=== PATIENT | male | born 1955 | race Caucasian/White ===

== ENCOUNTER 2021-08-13 08:14 | Emergency (ER) | payer BC, SELFPAY ==
--- NOTE | ~2021-08-13 | CT_ITS ---
EXAMINATION: CT abdomen pelvis w con EXAM DATE: 08/13/2021 10:48 INDICATION: Abdominal pain, probable umbilical hernia, nausea. TECHNIQUE: Spiral CT of the abdomen and pelvis was performed following intravenous injection of 100 m L Omnipaque 350. Axial, coronal and sagittal images of the abdomen and pelvis were reviewed. The do se-length product (DLP) for this examination was 498.53 mGy-cm. The exposure was tailored according to patient size (auto mA exposure control), and iterative reconstruction (ASIR) was used as additiona l dose reduction technique. There is no prior study for comparison. FINDINGS: Small to moderate-sized umbilical fat-containing hernia with mild fat stranding inside, mil d inflammation. The liver, spleen, adrenal glands and pancreas are unremarkable. Gallbladder is unre markable. No biliary obstruction. Portal and splenic veins are patent. Kidneys enhance symmetrical ly. There is no hydronephrosis. The prostate is unremarkable. The bladder is unremarkable. There is no retroperitoneal or pelvic lymphadenopathy. There is moderate scattered arteriosclerotic dise ase. There is short segment small bowel intussusception, only about 2.5 cm in length. This has been indica luly on axial image 71, coronal image 51. Short segment small bowel intussusceptions can be transient and incidentally found, however there is a mildly dilated jejunal loop proximal to this with air-flui d levels, measuring up to about 3 cm in diameter. The appendix is normal. There is moderate amount of colonic stool. No free intraperitoneal gas. The heart is normal in size. There are no pericardial or pleural effusions. The lung bases are unre markable. There are no osteoblastic or osteolytic lesions identified. IMPRESSION: 1. Small to moderate-sized umbilical fat-containing hernia, mild inflammation within. 2. Short segment small bowel intussusception, could be transient incidental finding, but mildly there is dilated loop of jejunum proximal to this. 3. Moderate amount of colonic stool. Reviewed, dictated and finalized at location B. SAW OPERATOR IMPRESSION: 1. Small to moderate-sized umbilical fat-containing hernia, mild inflammation w ithin. 2. Short segment small bowel intussusception, could be transient incidental fin ding, but mildly there is dilated loop of jejunum proximal to this. 3. Moderate amount of colonic stool.
[2021-08-13 08:40] VITALS: BP 116/76; PULSE 52; RESP 18; O2SAT 100
--- NOTE | 2021-08-13 08:49 | ED.GENADULT ---
HPI - General Adult General Chief complaint: Abdominal Pain Stated complaint: Abd Pain Time Seen by Provider: 08/13/21 08:37 History of Present Illness HPI narrative: Patient is a 65-year-old gentleman who presents the emergency department with chief complaint of abdominal pain. The patient reports that he was exercising at the gym this morning and reports that while doing some crunches he felt a tearing sensation around the umbilicus and noticed a small lump in his abdominal wall. Patient states it was worse when he was standing up the patient states as he laid flat it did not hurt nearly as much and reported the lump was a little bit smaller. The patient denies vomiting denies diarrhea denies fever denies prior history of hernias. Related Data Home Medications Medication Instructions Recorded Confirmed No Home Medications 02/26/20 02/26/20 Allergies Allergy/AdvReac Type Severity Reaction Status Date / Time No Known Allergies Allergy Verified 08/13/21 08:46 Review of Systems Review of Systems: A 10 system review of systems was completed on the patient and is negative except for what is stated in the HPI. Nursing and ancillary documentation was reviewed. [facility] Surgical History Surgical History H/O right knee surgery Family History Family History Grandparent Family history of Alzheimer's disease Social History Social History Alcohol intake: current Exam Narrative: GENERAL: Well-appearing, well-nourished, and in no acute distress. HEAD: Normocephalic, atraumatic. EYES: PERRLA and EOMI. ENT: Nares clear, no rhinorrhea or epistaxis. Mucous membranes moist. NECK: Supple. CHEST: Clear to auscultation. No respiratory distress. HEART: Regular rate and rhythm. No murmur heard. Normal peripheral pulses. ABDOMEN: Soft, nontender, nondistended, normal active bowel sounds. There is a small mass in the umbilicus area with gentle pressure it was able to be reduced the patient's pain is improved now EXTREMITIES: Normal range of motion. No edema. SKIN: Warm, dry, no rash. NEURO: No focal deficits. Alert and oriented x3. PSYCH: Normal mood and affect. Course Vital Signs Vital signs: Vital Signs Pulse Rate 52 L 08/13/21 08:40 Respiratory Rate 18 08/13/21 08:40 Blood Pressure 116/76 08/13/21 08:40 Pulse Oximetry 100 08/13/21 08:40 Pulse Rate 52 L 08/13/21 11:30 Respiratory Rate 16 08/13/21 11:30 Blood Pressure 140/92 H 08/13/21 11:30 Pulse Oximetry 98 08/13/21 11:30 Medical Decision Making Vital Signs Vital Signs: Vital Signs Pulse Rate 52 L 08/13/21 08:40 Respiratory Rate 18 08/13/21 08:40 Blood Pressure 116/76 08/13/21 08:40 Pulse Oximetry 100 08/13/21 08:40 Pulse Rate 52 L 08/13/21 11:30 Respiratory Rate 16 08/13/21 11:30 Blood Pressure 140/92 H 08/13/21 11:30 Pulse Oximetry 98 08/13/21 11:30 Lab Data Result diagrams: 08/13/21 09:09 08/13/21 09:09 Labs: Lab Results 08/13/21 08/13/21 08/13/21 Range/Units 09:09 09:09 09:09 WBC 5.5 (4.5-10.0) K/mm3 RBC 4.06 L (4.6-6.20) M/mm3 Hgb 13.5 L (14.0-18.0) g/dL Hct 38.8 L (42.0-52.0) % MCV 95.6 (80-100) fl MCH 33.3 (26-34) pg MCHC 34.8 (32-36) g/dl RDW 13.3 (11.5-14.5) % Plt Count 208 (150-375) k/mm3 MPV 9.4 (7.4-10.4) fl Immature Gran % (Auto) 0.2 (0-0.5) % Neut % (Auto) 75.8 H (45.5-73.1) % Lymph % (Auto) 15.0 L (18.3-44.2) % [place] % (Auto) 6.5 (2.6-8.5) % Eos % (Auto) 2.0 (0-4.4) % Baso % (Auto) 0.5 (0.2-1.2) % Lymph # (Auto) 0.83 L (0.9-3.2) K/mm3 [place] # (Auto) 0.4 (0.1-0.6) K/mm3 Eos # (Auto) 0.1 (0-0.3) K/mm3 Baso # (Auto) 0.0 (0.0-0.1) K/mm3 Abs Immat Gran (auto) 0.0
[2021-08-13 09:02] VITALS: BP 115/85; PULSE 49; RESP 18; O2SAT 97
[2021-08-13 09:17] LABS: Basophils Percent Auto 0.5 % (0.2-1.2); Eosinophils Absolute Auto 0.1 K/mm3 (0-0.3); Hematocrit 38.8 % (42.0-52.0); Hemoglobin 13.5 g/dL (14.0-18.0); Immature Granulocyte Absolute 0.01 K/mm3 (0.00-0.031); Immature Granulocyte Percent A 0.2 % (0-0.5); Lymphocytes Absolute Auto 0.83 K/mm3 (0.9-3.2); Mean Corpuscular HGB Conc 34.8 g/dl (32-36); Mean Corpuscular Hemoglobin 33.3 pg (26-34); Mean Corpuscular Volume 95.6 fl (80-100); Mean Platelet Volume 9.4 fl (7.4-10.4); Monocytes Absolute Auto 0.4 K/mm3 (0.1-0.6); Monocytes Percent Auto 6.5 % (2.6-8.5); Neutrophils Absolute Auto 4.2 K/mm3 (1.3-6.7); Neutrophils Percent Auto 75.8 % (45.5-73.1); Platelet Count Result 208 k/mm3 (150-375); Red Blood Count 4.06 M/mm3 (4.6-6.20); Red Cell Distribution Width 13.3 % (11.5-14.5); White Blood Count 5.5 K/mm3 (4.5-10.0)
[2021-08-13 09:25] LABS: Add Urine Microscopic? NO; Appearance Urine Clear (Clear); Bilirubin Urine Negative (Negative); Blood Urine Negative (Negative); Color Urine Yellow (Yellow); Glucose Urine UA Negative (Negative); Ketones Urine Negative (Negative); Leukocyte Esterase Ur Negative LEU/UL (Negative); Nitrate Urine Negative (Negative); Protein Urine Negative (Negative); Specific Grav Ur 1.025 (1.001-1.035); Urobilinogen Urine Negative mg/dL (<2.0)
[2021-08-13 09:31] LABS: Lactic Acid Reflex 0.9 mmol/L (0.7-2.1)
[2021-08-13 09:32] LABS: Alanine Aminotransferase 27 U/L (4-50); Albumin Level 4.1 g/dL (3.5-5.1); Alkaline Phosphatase 89 U/L (38-126); Anion Gap 8 mmol/L (8-16); Aspartate Amino Transferase 35 U/L (17-59); Bilirubin,Total 0.7 mg/dL (0.2-1.3); Blood Urea Nitrogen 22 mg/dL (9-20); Carbon Dioxide 25 mmol/L (22-30); Chloride 105 mmol/L (98-107); Estimated CRCL calculation 70 ml/min; Estimated Glomerular Filt Rate > 60; Glucose 100 mg/dL (65-110); Lipase 90 U/L (23-300); Sodium 138 mmol/L (137-145)
[2021-08-13 10:01] VITALS: BP 120/83; PULSE 50; RESP 19; O2SAT 95
[2021-08-13 11:30] VITALS: BP 140/92; PULSE 52; RESP 16; O2SAT 98
[2021-08-13 12:45] VITALS: BP 125/86; PULSE 64; RESP 18; O2SAT 97
== END 2021-08-13 12:45 | disposition home or self-care (01) ==
PROVIDERS: Emergency Provider Emergency Medicine
DX: K42.9 Umbilical hernia without obstruction or gangrene (principal)
CPT/HCPCS: 36415; 74177; 80053; 81003; 83605; 83690; 85025; 99284; Q9967

== ENCOUNTER 2021-08-21 01:25 | Day surgery (SDC) | payer BC, SELFPAY ==
[2021-08-19 10:35] VITALS: BMI 25.8
--- NOTE | 2021-08-19 10:44 | PC.NURSE ---
Report to the Outpatient Waiting Room, entrance under the green pavilion located off [facility], at time 1130 on date 08/21/21. OR Time: 1330. - You and your visitor will be asked a series of questions to screen for COVID 19 for your protection. - A mask is required within the hospital. - Only one visitor is allowed at this time. Patient visitors will be guided where to wait when not with patient. Preoperative COVID Testing Requirements: No COVID Test needed if: (proof is required; if not received patient will have Rapid Test prior to entry) - Patient has received COVID Vaccine at least 14 days prior to procedure date or - Patient has positive COVID test result within last 90 days of surgery date. COVID Test needed if above criteria is not met If not COVID vaccinated a COVID test must be conducted within 72 hours of surgery and patient is asked to isolate self from time of testing until procedure. You will go to the [facility] for your COVID testing. The [facility] site is located at the corner of [address] [facility]. You will only be called if COVID results are positive and your surgeon may reschedule your elective surgery date. Patients may have clear liquids (water, carbonated beverages, clear teas, apple juice) until 3 hours prior to surgery with a maximum of 20 ounces. - No food from midnight until time of surgery - Infants may have breast milk until 4 hours before surgery, infant formula 6 hours prior to surgery. - Children will be allowed to drink immediately following surgery. If applicable, please bring a bottle or sippy cup to assist with drinking. Juice, water, soda, and popsicles are readily available. For infants on formula, please bring formula the day of surgery. Pacifiers are allowed. Take the following medications with a SIP of water the morning of surgery: NONE Medications to discontinue per physician: N/A Date to take last dose: N/A Please no make-up, nail nepalese, hairspray, perfume, deodorant, or body powder the day of surgery. No jewelry (including any body piercings) or valuables the day of surgery, leave them at home. Please take a shower or bath the night before, or the morning of, surgery with an antibacterial soap. Wear comfortable, loose fitting clothing. HIBICLENS SHOWER - Jewelry must be removed prior to entering the operating room. Rings and piercings that are not removed may be cut off. - The hospital will not accept responsibility for valuables. - Please leave all valuables, including medications, at home the day of surgery. If you are going home after surgery, a licensed garbage truck driver must drive you home. - NO public transportation without another adult. - We recommend that an adult stay with you for 24 hours following discharge. - We also recommend that you do not drive, make important decision, drink alcoholic beverages, or take any drugs that were not prescribed by your health care provider for at least 24 hours after your discharge time. Follow any additional instructions given to you from your surgeon. Telephone instructions given to PAMELA COPELAND and asked if any additional questions and then verbalized understanding. Patient advised to call surgeon office or pre surgery nurse liaison [phone] if any additional questions.
[2021-08-21] VITALS (7 sets, daily range): BP systolic 112–140; BP diastolic 69–93; PULSE 58–72; RESP 11–18; TEMP 36.2–36.4; O2SAT 97–100
--- NOTE | 2021-08-21 10:06 | P.PNAN_ITS ---
Anes - Initial Pre Proc Eval Procedure: Operation Date: 08/21/21 13:30 Proposed Procedures p Repair of Incarcerated Umbilical Hernia with Mesh - Nacho Hensley MD Date/Time: 08/21/21 10:06 Surgeon: Nacho Hensley MD Pre Op Diagnosis: incarcerated umbilical hernia Patient Data Age: 66 Gender: M Height: 1.78 m Weight: 81.65 kg Allergies Allergy/AdvReac Type Severity Reaction Status Date / Time No Known Allergies Allergy Verified 08/21/21 11:47 Home Medications Medication Instructions Recorded Confirmed Type diphenhydramine HCl [Benadryl] 25 mg PO HS 08/19/21 08/21/21 History Patient hx anesthesia problems: none Family hx anesthesia problems: none Results Review: All pre-operative results and documents have been reviewed as part of the pre-operative evaluation. [facility] Past Medical History Medical History (Updated 08/21/21 @ 10:06 by Gerson James MD) Actinic keratosis BMI 27.0-27.9,adult BPH (benign prostatic hyperplasia) Elevated blood pressure reading Surgical History Surgical History H/O right knee surgery Family History Family History Grandparent Family history of Alzheimer's disease Social History Social History (Updated 08/14/21 @ 08:09 by April Mendiola MA) Smoking packs per day: 1 Smoking cigarettes per day: 20.0 Years smoked: 15 Smoking pack-years: 15.00 Smoking status: Former smoker Tobacco type: cigarettes Smoking end date: 08/30/90 Additional smoking assessment comments: Patient states he quit smoking 30 years ago Alcohol intake: current Drinks per week: 4 Substance use: never Substance use type: does not use Living arrangements: with family Spiritual care concerns: No Anes - Eval Final PreProcedure Day of Procedure 08/21/21 10:06 Patient weight: normal Heart: regular rate and rhythm Lungs: clear to auscultation and normal air movement Airway: Mallampati scale class II Neurological: alert and oriented Last oral intake: >/= 8 hours ASA classification: II Emergent: no Anesthetic plan: proceed Anesthesia type and monitoring: general GIVS and LMA Results Review: All pre-operative results and documents have been reviewed as part of the pre-operative evaluation. Informed Consent: The patient's anesthetic plan and its attendant risks and benefits were discussed with the patient/family/POA. Questions were solicited and answers provided to the satisfaction of the patient/family/POA.
--- NOTE | 2021-08-21 10:08 | WPDHPUPDATE1 ---
History and Physical Update Update Date/Time: 08/21/21 10:08 History and Physical has been reviewed, including an updated exam of the patient. There are NO changes in the patient's condition. Risks, benefits, and alternatives have been discussed and questions answered. Patient agrees to proceed with procedure.
[2021-08-21] MEDS: ACETAMINOPHEN 500 MG TABLET 1000 MG PO (12:10)
[2021-08-21] MEDS: KETOROLAC 15 MG/ML VIAL (*BKC) IV PUSH (12:10)
[2021-08-21] MEDS: LACTATED RINGERS 1,000 ML 30 ML IV CONT ×2 (12:15→14:32)
[2021-08-21] MEDS: ceFAZolin 2 GM/D5W 50 ML 2 GM/50 ML BAG IVPB (13:30)
[2021-08-21] MEDS: BUPIVACAINE HCL 0.5% PF 30 ML VIAL INFILTRATE (13:37)
--- NOTE | 2021-08-21 14:31 | P.OP_ITS ---
Procedure Note - Detailed Date of Procedure 08/21/21 Pre-op Diagnosis incarcerated umbilical hernia Post-op Diagnosis same Procedure Performed Umbilical hernia repair with 4.[address] hernia patch underlay mesh Surgeon Nacho Hensley MD Pathology Lab Technician Kali HOLT Anesthesia general (LMA) and local (0.5% Marcaine) Indications Patient is a 66-year-old man with long-standing umbilical hernia. A couple of weeks ago he developed a larger much more painful bulge at the umbilicus. He went to the emergency room where he was diagnosed with an incarcerated umbilical hernia. After some analgesics, the emergency room physician was able to partially reduce the hernia. The patient has been much more comfortable. He was seen in the office and is taken to surgery now for umbilical hernia repair. Findings 1.5 cm defect with herniated properitoneal fat and omentum. Description of Procedure The patient was taken to surgery and placed in a supine position. IV sedation was administered and the abdomen was prepped and draped. The proposed incision was marked along the lower margin of the umbilicus. Local was infiltrated in the area of the anticipated incision as well as into the subcutaneous and fascia of below it. Incision was made and dissection was carried down through the subcutaneous to the hernia sac. The umbilical skin was dissected off the hernia sac and the sac was dissected free from the surrounding subcutaneous tissues. Dissection was carried down to the neck of the sac and the fascial margin. Additional local was infiltrated into the fascia all around the hernia sac. I then used the cautery and divided the hernia sac, removing it. It was discarded. I then reduced the herniated contents. I removed some thin and remnants of hernia sac from the edge of the fascial margin as well. The defect was fairly small as noted above. A 4.3 cm Ventralex patch was chosen. This was placed in the defect. Cranial and caudal transfascial sutures were placed with 0 Ethibond. These were placed in such a fashion as they would advance the edges of the hernia defect towards 1 another. Finally the hernia defect was closed with a [id number] mattress suture of 0 Ethibond. This suture also incorporated a bit of mesh. The repair was inspected and appeared to be satisfactory. I infiltrated additional local all around the hernia repair for postoperative anesthetic affect. I then trimmed some additional hernia sac from the umbilical skin. I sutured the umbilical skin to the fascia with 3-0 Vicryl suture, inverting the umbilicus. Some subcutaneous 3-0 Vicryl sutures were placed as well. I then loosely approximated the umbilical skin with interrupted 3-0 and 4-0 Vicryl subcuticular suture. Finally a running 4-0 Monocryl skin suture was placed to close the skin. The wound was dressed with Exofin surgical adhesive. Patient was awakened and taken to recovery in good condition. Sponge and needle counts were correct x2. Estimated Blood Loss -5 Drains No Packing No Pathology none sent Complications No immediate complications Condition stable Disposition PACU
== END 2021-08-21 16:02 | disposition home or self-care (01) ==
PROVIDERS: PCP Internal Medicine; Visit Provider Surgery
PROC: (CPT 49587; principal; 2021-08-21 13:30)
DX: K42.0 Umbilical hernia with obstruction, without gangrene (principal); Z87.891 Personal history of nicotine dependence
CPT/HCPCS: 49587; A9270; J0690; J1100; J1885; J2250; J2405; J2704; J3010; J7120